=== PATIENT | male | born 1960 | race Caucasian/White ===

== ENCOUNTER 2017-09-30 10:26 | Emergency (ER) | payer MEDICAID ==
[~2017-09-30] VITALS: Ht 188 cm; Wt 159.1 kg
[2017-09-30] MEDS ORDERED: AMOX500C2 PO (10:49)
[2017-09-30] MEDS ORDERED: WARF5 PO (10:49)
[2017-09-30] MEDS ORDERED: WARF7.5 PO (10:49)
[2017-09-30] MEDS ORDERED: HYDR-4061 PO (10:49)
[2017-09-30] MEDS ORDERED: ASCO500 PO (10:49)
[2017-09-30] MEDS ORDERED: BACTDSB PO (10:49)
[2017-09-30] MEDS ORDERED: METO25XL PO (10:49)
[2017-09-30] MEDS ORDERED: SERT50TA12 PO (10:49)
[2017-09-30] MEDS ORDERED: GABA-531 PO (10:49)
[2017-09-30] MEDS ORDERED: ATOR40TA28 PO (10:49)
[2017-09-30] MEDS ORDERED: MULT1CAP32 PO (10:49)
[2017-09-30] MEDS ORDERED: SODIUM CHLORIDE 0.9% 1,000 ML IV ONE (12:15)
[2017-09-30] MEDS ORDERED: KETOROLAC TROMETHAMINE 30 MG/ML VIAL IVP ONE (12:15)
[2017-09-30 12:48] LABS: BASOPHILS # (AUTO) 0.02 K/uL (0.00-0.20); BASOPHILS % (AUTO) 0.3 % (0.0-2.0); EOSINOPHILS # (AUTO) 0.11 K/uL (0.00-0.70); EOSINOPHILS % (AUTO) 1.43 % (1.0-6.0); HEMATOCRIT 39.9 % (41-53); LYMPHOCYTES # (AUTO) 1.5 K/uL (1.0-4.8); LYMPHOCYTES % (AUTO) 20.3 % (22.0-44.0); MEAN CORPUSCULAR HEMOGLOBIN 28.1 pg (26.0-34.0); MEAN CORPUSCULAR HGB CONC 32.7 G/dL (31.0-37.0); MEAN CORPUSCULAR VOLUME 86 fL (80-100); MONOCYTES # (AUTO) 0.6 K/uL (0.1-1.0); MONOCYTES % (AUTO) 8.2 % (2.0-9.0); NEUTROPHILS # (AUTO) 5.2 K/uL (1.8-7.7); NEUTROPHILS % (AUTO) 69.8 % (40.0-70.0); PLATELET COUNT (AUTO) 200 K/uL (150-450); RED BLOOD CELL COUNT(AUTO) 4.64 MIL/uL (4.50-5.90); RED CELL DISTRIBUTION WIDTH 14.1 % (11.5-14.5); WHITE BLOOD COUNT (AUTO) 7.4 K/uL (4.5-11.0)
[2017-09-30 12:59] LABS: ANION GAP 8 mmol/L (8-16); CALCIUM, TOTAL 9.1 mg/dL (8.8-10.5); CARBON DIOXIDE 28 mmol/L (22-29); CHLORIDE 102 mmol/L (98-107); CREATININE 1.13 mg/dL (0.60-1.30); GLOMERULAR FILTR. RATE CALC > 60 mL/min (>60); INR 1.6 (0.9-1.1); POTASSIUM 4.3 mmol/L (3.5-5.1); PROTHROMBIN TIME 16.9 SEC (9.4-11.6); SODIUM SERUM 138 mmol/L (136-145); UREA NITROGEN, BLOOD 15 mg/dL (7-18)
[2017-09-30 13:05] LABS: ALANINE AMINOTRANSFERASE 21 U/L (12-78); ALBUMIN 3.7 g/dL (3.4-5.0); ASPARTATE AMINOTRANSFERASE 17 U/L (15-37); BILIRUBIN,TOTAL 0.4 mg/dL (0.1-1.0); TOTAL PROTEIN, SERUM 7.1 g/dL (6.4-8.2)
[2017-09-30 15:25] VITALS: BP 122/71
== END 2017-09-30 15:41 | disposition home or self-care (01) ==
LOC: EMS 10:36
DX: M54.5 Low back pain (principal); K59.00 Constipation, unspecified; I10 Essential (primary) hypertension; E78.00 Pure hypercholesterolemia, unspecified; W18.39XA Other fall on same level, initial encounter; Y93.89 Activity, other specified; Y92.89 Other specified places as the place of occurrence of the external cause; Y99.8 Other external cause status
CPT/HCPCS: 36415; 80053; 83690; 85025; 85610; 96361; 96374; 99285; J1885; J7030

== ENCOUNTER 2022-02-15 19:13 | Emergency (ER) | payer MEDICARE, OTHER ==
[~2022-02-15] VITALS: Ht 188 cm; Wt 145.4 kg
[~2022-02-15 19:13] MED LIST: AMOX500C2 PO; ASCO500 PO; ATOR40TA28 PO; BACTDSB PO; GABA-1181 PO; HYDR-4061 PO; METO25XL PO; MULT1CAP32 PO; SERT-158 PO; WARF5TAB40 PO; WARF7.5T7 PO
[2022-02-15] MEDS ORDERED: DiphenhydrAMINE HCL 25 MG CAPSULE PO ONE (19:45)
[2022-02-15] MEDS ORDERED: PredniSONE 20 MG TABLET PO ONE (20:15)
[2022-02-15 20:44] VITALS: BP 125/85
== END 2022-02-15 21:25 | disposition home or self-care (01) ==
LOC: EMS 19:16
DX: L29.9 Pruritus, unspecified (principal); F42.4 Excoriation (skin-picking) disorder; E78.00 Pure hypercholesterolemia, unspecified; I11.9 Hypertensive heart disease without heart failure; Z86.73 Personal history of transient ischemic attack (TIA), and cerebral infarction without residual deficits; Z79.01 Long term (current) use of anticoagulants
CPT/HCPCS: 99283; J7512

== ENCOUNTER 2022-03-28 10:17 | Emergency (ER) | payer MEDICARE, OTHER ==
[~2022-03-28] VITALS: Ht 188 cm; Wt 150.0 kg
[2022-03-28 10:57] LABS: BASOPHILS % (AUTO) 0.3 % (0.0-2.0); EOSINOPHILS % (AUTO) 0.5 % (1.0-6.0); HEMATOCRIT 38.2 % (41-53); HEMOGLOBIN 12.4 g/dL (13.5-17.5); MEAN CORPUSCULAR HEMOGLOBIN 26.2 pg (26.0-34.0); MEAN CORPUSCULAR HGB CONC 32.5 G/dL (31.0-37.0); MEAN CORPUSCULAR VOLUME 81 fL (80-100); MONOCYTES # (AUTO) 0.8 K/uL (0.1-1.0); MONOCYTES % (AUTO) 7.4 % (2.0-9.0); NEUTROPHILS # (AUTO) 9.3 K/uL (1.8-7.7); NEUTROPHILS % (AUTO) 82.8 % (40.0-70.0); PLATELET COUNT (AUTO) 269 K/uL (150-450); RED BLOOD CELL COUNT(AUTO) 4.74 MIL/uL (4.50-5.90); RED CELL DISTRIBUTION WIDTH 14.5 % (11.5-14.5)
[2022-03-28 11:06] LABS: ANION GAP 6 mmol/L (8-16); CALCIUM, TOTAL 9.6 mg/dL (8.8-10.5); CARBON DIOXIDE 36 mmol/L (22-29); CHLORIDE 97 mmol/L (98-107); CREATININE 1.08 mg/dL (0.60-1.30); GLOMERULAR FILTR. RATE CALC > 60 mL/min (>60); GLUCOSE,RANDOM 127 mg/dL (70-110); POTASSIUM 4.3 mmol/L (3.5-5.1); SODIUM SERUM 139 mmol/L (136-145); UREA NITROGEN, BLOOD 35 mg/dL (7-18)
[2022-03-28 11:10] LABS: PROTHROMBIN TIME 10.9 SEC (9.4-11.6)
[2022-03-28 11:11] LABS: ALANINE AMINOTRANSFERASE 17 U/L (12-78); ALBUMIN 3.4 g/dL (3.4-5.0); ALKALINE PHOSPHATASE 79 U/L (46-116); ASPARTATE AMINOTRANSFERASE 13 U/L (15-37); BILIRUBIN,TOTAL 0.5 mg/dL (0.1-1.0); LIPASE 115 U/L (73-393); TOTAL PROTEIN, SERUM 7.9 g/dL (6.4-8.2)
[2022-03-28] MEDS ORDERED: PB/HYOSCY/ATR/SCOP/LIDO/MAALOX 55 ML BOTTLE PO ONE (11:15)
[2022-03-28 11:47] LABS: COVID AG,FIA SOURCE NASAL SWAB
[2022-03-28] MEDS ORDERED: DiphenhydrAMINE HCL 50 MG/ML VIAL IVP ONE (13:00)
[2022-03-28 16:30] VITALS: BP 104/66
== END 2022-03-28 17:13 | disposition home or self-care (01) ==
LOC: EMS 10:17
DX: L29.9 Pruritus, unspecified (principal); F42.4 Excoriation (skin-picking) disorder; R10.9 Unspecified abdominal pain; F99 Mental disorder, not otherwise specified; E78.00 Pure hypercholesterolemia, unspecified; I10 Essential (primary) hypertension; Z86.79 Personal history of other diseases of the circulatory system; Z98.62 Peripheral vascular angioplasty status; Z20.822 Contact with and (suspected) exposure to COVID-19; X58.XXXA Exposure to other specified factors, initial encounter; Y93.89 Activity, other specified; Y92.89 Other specified places as the place of occurrence of the external cause; Y99.8 Other external cause status
CPT/HCPCS: 36415; 74176; 80053; 83690; 84484; 85025; 85610; 85730; 87426; 93005; 96374; 99285; J1200

== ENCOUNTER 2022-08-08 15:30 | Emergency (ER) | payer MEDICARE, OTHER ==
[~2022-08-08] VITALS: Ht 180.3 cm; Wt 140.0 kg
[2022-08-08] MEDS ORDERED: LORA-999 PO (15:48)
[2022-08-08] MEDS ORDERED: BUME1TAB34 PO (15:48)
[2022-08-08] MEDS ORDERED: FOLI-130 PO (15:48)
[2022-08-08] MEDS ORDERED: CARV3 PO (15:48)
[2022-08-08] MEDS ORDERED: ASPI-1450 PO (15:48)
[2022-08-08] MEDS ORDERED: CLOB60CR12 TP (15:48)
[2022-08-08 15:49] VITALS: BP 144/78
[2022-08-08] MEDS ORDERED: GABA-1181 PO (17:54)
[2022-08-08] MEDS ORDERED: HYDR-3831 PO (17:54)
[2022-08-08] MEDS ORDERED: RIVA20TA PO (17:54)
[2022-08-08] MEDS ORDERED: NALT50TA6 PO (17:54)
== END 2022-08-08 18:21 | disposition home or self-care (01) ==
LOC: EMS 15:50
DX: L29.9 Pruritus, unspecified (principal); E11.9 Type 2 diabetes mellitus without complications; I11.9 Hypertensive heart disease without heart failure; Z98.62 Peripheral vascular angioplasty status
CPT/HCPCS: 99283

== ENCOUNTER 2022-08-23 21:28 | Emergency (ER) | payer MEDICARE, OTHER ==
[~2022-08-23] VITALS: Ht 188 cm; Wt 150.0 kg
[~2022-08-23 21:28] MED LIST changes: -AMOX500C2 PO; -ASCO500 PO; +ASPI-1450 PO; -BACTDSB PO; +BUME1TAB34 PO; +CARV3 PO; +CLOB60CR12 TP; +FOLI-130 PO; +HYDR-3831 PO; -HYDR-4061 PO; +LORA-999 PO; -METO25XL PO; -MULT1CAP32 PO; +NALT50TA6 PO; +RIVA20TA PO; -SERT-158 PO; -WARF5TAB40 PO; -WARF7.5T7 PO
[2022-08-24] MEDS ORDERED: PredniSONE 20 MG TABLET PO ONE (00:15)
[2022-08-24] MEDS ORDERED: HydrOXYzine HCL 50 MG TABLET PO ONE (00:15)
[2022-08-24] MEDS ORDERED: ACETAMINOPHEN 500 MG TABLET PO ONE (00:15)
[2022-08-24 01:30] VITALS: BP 141/84
== END 2022-08-24 01:59 | disposition home or self-care (01) ==
LOC: EMS 21:28
DX: L29.9 Pruritus, unspecified (principal); J44.9 Chronic obstructive pulmonary disease, unspecified; E11.9 Type 2 diabetes mellitus without complications; E78.00 Pure hypercholesterolemia, unspecified; I11.9 Hypertensive heart disease without heart failure; Z98.62 Peripheral vascular angioplasty status
CPT/HCPCS: 99284; J7512

== ENCOUNTER 2022-09-25 21:07 | Emergency (ER) | payer MEDICARE, OTHER ==
[~2022-09-25] VITALS: Ht 188 cm; Wt 150.0 kg
[2022-09-25] MEDS ORDERED: NITR0.3T12 SL (21:30)
[2022-09-25] MEDS ORDERED: CHOL200074 PO (21:30)
[2022-09-25] MEDS ORDERED: HydrOXYzine HCL 50 MG TABLET PO ONE (22:15)
[2022-09-25 22:21] VITALS: BP 151/78
== END 2022-09-25 23:34 | disposition home or self-care (01) ==
LOC: EMS 21:08
DX: L29.9 Pruritus, unspecified (principal); E11.9 Type 2 diabetes mellitus without complications; E78.00 Pure hypercholesterolemia, unspecified; F42.4 Excoriation (skin-picking) disorder; G89.29 Other chronic pain; J44.9 Chronic obstructive pulmonary disease, unspecified; I10 Essential (primary) hypertension; Z98.61 Coronary angioplasty status
CPT/HCPCS: 99283

== ENCOUNTER 2022-09-27 15:33 | Emergency (ER) | payer MEDICARE, OTHER ==
[~2022-09-27] VITALS: Ht 188 cm; Wt 150.0 kg
[~2022-09-27 15:33] MED LIST changes: +CHOL200074 PO; -CLOB60CR12 TP; +NITR0.3T12 SL
[2022-09-27] MEDS ORDERED: DEXAMETHASONE SOD PHOS 4 MG/ML 5 ML VIAL IM ONE (16:15)
[2022-09-27 17:13] VITALS: BP 134/74
== END 2022-09-27 17:14 | disposition home or self-care (01) ==
LOC: EMS 15:37
DX: L29.9 Pruritus, unspecified (principal); I10 Essential (primary) hypertension; E11.9 Type 2 diabetes mellitus without complications; E78.00 Pure hypercholesterolemia, unspecified; J44.9 Chronic obstructive pulmonary disease, unspecified
CPT/HCPCS: 99283; 96372; J1100

== ENCOUNTER 2022-10-05 21:23 | Emergency (ER) | payer MEDICARE, OTHER ==
[~2022-10-05] VITALS: Ht 188 cm; Wt 143.2 kg
[2022-10-05 23:14] VITALS: BP 146/76
== END 2022-10-06 01:03 | disposition home or self-care (01) ==
LOC: EMS 21:24
DX: H93.11 Tinnitus, right ear (principal); J44.9 Chronic obstructive pulmonary disease, unspecified; E11.9 Type 2 diabetes mellitus without complications; E78.00 Pure hypercholesterolemia, unspecified; I11.9 Hypertensive heart disease without heart failure; Z98.62 Peripheral vascular angioplasty status
CPT/HCPCS: 99283; Z7502

== ENCOUNTER 2022-12-15 14:33 | Emergency (ER) | payer MEDICARE, OTHER ==
[~2022-12-15] VITALS: Ht 188 cm; Wt 150.0 kg
[2022-12-15 18:15] VITALS: BP 149/78
== END 2022-12-15 19:18 | disposition home or self-care (01) ==
LOC: EMS 14:36
DX: H93.11 Tinnitus, right ear (principal); L29.9 Pruritus, unspecified; J44.9 Chronic obstructive pulmonary disease, unspecified; E11.9 Type 2 diabetes mellitus without complications; E78.00 Pure hypercholesterolemia, unspecified; I11.9 Hypertensive heart disease without heart failure; Z98.62 Peripheral vascular angioplasty status
CPT/HCPCS: 99283